=== PATIENT | male | born 1995 | race Caucasian/White ===

== ENCOUNTER 2021-07-15 21:56 | Emergency (ER) | payer OTHER ==
[~2021-07-15 21:56] MED LIST: ONDANSETRON ODT4 MG SL
[2021-07-15 23:00] LABS: BASOPHIL 0.5 % (0-2); EOSINOPHIL 0.8 % (0-5); HCT 49.8 % (42.0-52.0); HGB 17.7 g/dl (13.2-18.0); MCH 30.5 pg (25.0-31.0); MCHC 35.5 g/dL (32.0-36.0); MCV 85.7 fL (78.0-100.0); MONOCYTE 4.4 % (0-12); MPV 10.3 fL (6.0-9.5); NRBC 0; PLT 269 K/uL (150-400); RBC 5.81 M/uL (4.70-6.00); RDW 11.9 % (11.5-14.0); WBC 14.5 K/uL (4.0-10.5)
[2021-07-15 23:12] LABS: ALBUMIN 4.9 g/dL (3.4-5.0); BILIRUBIN - TOTAL 0.9 mg/dL (0.2-1.0); BUN/CREAT RATIO (CALC) 16.8 RATIO; CREATININE 0.95 mg/dL (0.67-1.17); GLOBULIN (CALCULATION) 3.9 g/dL; POTASSIUM 4.1 mmol/L (3.5-5.1); TOTAL PROTEIN 8.8 g/dL (6.4-8.2)
[2021-07-16 03:15] LABS: BILIRUBIN NEGATIVE (NEGATIVE); BLOOD NEGATIVE Ery/uL (NEGATIVE); CLARITY CLEAR (CLEAR); COLOR YELLOW (YELLOW); GLUCOSE (U) NORMAL (NORMAL); LEUKOCYTES NEGATIVE Leu/uL (NEGATIVE); NITRITE NEGATIVE (NEGATIVE); PROTEIN NEGATIVE (NEGATIVE); SPECIFIC GRAVITY 1.015 (1.001-1.030); UROBILINOGEN 0.2 mg/dL (0.2-1.0); pH 5.5 (5.0-9.0)
[2021-07-16 03:33] LABS: CORONAVIRUS 2019 SARS-COV-2 NEGATIVE (NEGATIVE); INFLUENZA A NAA NEGATIVE (NEGATIVE)
[2021-07-16] MEDS ORDERED: COLACE100 MG PO (03:57)
[2021-07-16] MEDS ORDERED: MIRALAX 238GM238 GM PO (03:57)
[2021-07-16] MEDS ORDERED: ONDANSETRON ODT4 MG SL (03:57)
[2021-07-16] MEDS ORDERED: NORCO 5-325 TA1 EACH PO (03:57)
[2021-07-16] MEDS ORDERED: IBUPROFEN800 MG PO (03:57)
== END 2021-07-16 04:09 | disposition home or self-care (01) ==
LOC: FER 21:56
PROVIDERS: Emergency Medicine Emergency Medical Services; Physician Assistant Medical
DX: K80.50 Calculus of bile duct without cholangitis or cholecystitis without obstruction (principal); F17.290 Nicotine dependence, other tobacco product, uncomplicated; Z20.822 Contact with and (suspected) exposure to COVID-19
CPT/HCPCS: 36415; 80053; 81003; 85025; J1170; J1885; J2405; Q9967; U0002